=== PATIENT | female | born 1985 | race Caucasian/White ===

== ENCOUNTER 2017-04-21 13:13 | Emergency (ER) | payer OTHER ==
--- NOTE | 2017-04-21 13:35 | PDOC ---
History of Present Illness - General History Source: Patient Exam Limitations: No Limitations - History of Present Illness Initial Comments: CHIEF COMPLAINT: 31 y/o afebrile female with PMH severe CP (non verbal), and left ptosis BIB mom and aide for increased agitation over the past 2 days. HISTORY OF PRESENT ILLNESS: Mom states the patient started biting herself and slamming her left arm over and over again against her bed 2 days ago. Mom admits this normally happens when she is in pain or is sick. The aide from her day program also admits she's been more agitated over the past 2 days. Mom denies fever, vomiting, diarrhea, decrease in urinary output, decrease in PO intake. Vital signs on arrival are BP of 104/65. REVIEW OF SYSTEMS: (Provided by mother and aide; patient is non verbal) GENERAL/CONSTITUTIONAL: No fever RESPIRATORY: No cough. GASTROINTESTINAL: No vomiting, diarrhea or constipation GENITOURINARY: No decrease in urination. SKIN: +bruising to left arm and bites to right arm. NEUROLOGIC: +agitation. No seizures. no LOC. PHYSICAL EXAM: GENERAL: The patient is awake and intermittently hitting her left arm against the bed railing. HEAD: Normal with no signs of trauma. ENT: Left eye stuck shut. Right eye rolled back into head. LUNGS: Clear to auscultation bilaterally. Normal excursion. No respiratory distress or use of accessory muscles. CV: RRR, S1/S2, no MRG. Cap refill < 2 sec. ABDOMEN: Soft, non-distended, non-tender even to deep palpation, no hepatomegaly or splenomegaly, no masses. VAGINAL: External vaginal exam is unremarkable for irritation, rash or discharge. Speculum and manual exam was not performed. EXTREMITIES: Right wrist held in flexure contraction. Multiple bruising of left dorsal forearm. NEUROLOGICAL: Normal speech, normal gait. CN II-XII grossly intact. PSYCH: Normal mood, normal affect. SKIN: 10cm x 4cm area of macerated skin of left upper arm without oozing, discharge or streaking. Multiple scabs over joints of right hand. <Elda Adair - Last Filed: 04/21/17 16:19> <Judy Jack - Last Filed: 04/22/17 15:41> - General Chief Complaint: Seizure Stated Complaint: SEIZURE Time Seen by Provider: 04/21/17 13:34 Past History <Elda Adair - Last Filed: 04/21/17 16:19> <Judy Jack - Last Filed: 04/22/17 15:41> - Past Medical History Allergies/Adverse Reactions: Allergies Allergy/AdvReac Type Severity Reaction Status Date / Time No Known Allergies Allergy Verified 04/21/17 13:51 Home Medications: Ambulatory Orders Baclofen 20 mg PO TID 04/21/17 Lamotrigine 75 mg PO BID 04/21/17 Olanzapine [Zyprexa -] 2.5 mg PO DAILY 04/21/17 Sertraline HCl 50 mg PO DAILY 04/21/17 Sertraline HCl [Zoloft -] 100 mg PO DAILY 04/21/17 *Physical Exam - Vital Signs Last Vital Signs Temp Pulse Resp BP Pulse Ox 97.9 F 73 20 111/68 98 04/21/17 17:25 04/21/17 17:25 04/21/17 17:25 04/21/17 17:25 04/21/17 17:25 <Judy Jack - Last Filed: 04/22/17 15:41> ED Treatment Course - LABORATORY CBC & Chemistry Diagram: 04/21/17 14:20 04/21/17 14:20 <Elda Adair - Last Filed: 04/21/17 16:19> - LABORATORY CBC & Chemistry Diagram: 04/21/17 14:20 04/21/17 14:20 - ADDITIONAL ORDERS Additional order review: 04/21/17 13:44 Urine Culture - Final Urine - Urine Clean Catch NO GROWTH OBTAINED 04/21/17 14:20 RBC 4.07 MCV 84.3 MCHC 33.2 RDW 14.4 MPV 9.1 Neutrophils % 50.3 Lymphocytes % 36.2 Monocytes % 9.4 Eosinophils % 3.6 Basophils % 0.5 - Medications Given in the ED: ED Medications Discontinued Medications Generic Name Dose Route Start Last Admin Trade Name Freq PRN Reason Stop Dose Admin Sodium Chloride 1,000 mls @ 1,000 mls/hr 04/21/17 14:21 04/21/17 15:57 Normal Saline - IV 04/21/17 15:20 Not Given ASDIR STA <Judy Jack - Last Filed: 04/22/17 15:41> Medical Decision Making - Medical Decision Making A/P: 31 y/o female with CP BIB mom for increased agitation over the past 2 days. Plan is as follows: 1. UA/culture 2. labs 3. IV fluids Labs and urine unremarkable. Will cover arm abrasion with non adherent dressing and RAD bandage in an attempt to prevent further biting of the area. Suggested mom f/u with her PCP if symptoms persist and return to the ER with any worsening or concerning symptoms. The patient's mom verbalizes understanding of all instructions, has no further questions and is awaiting discharge. <Elda Adair - Last Filed: 04/21/17 16:19> *DC/Admit/Observation/Transfer <Elda Adair - Last Filed: 04/21/17 16:19> - Attestations Physician Attestion: I reviewed the case with the mid-level practitioner and agree with the mid- level practitioner's assessment, diagnosis and disposition. <Judy Jack - Last Filed: 04/22/17 15:41> Diagnosis at time of Disposition: Agitation - Discharge Dispostion Disposition: HOME Condition at time of disposition: Good - Patient Instructions Additional Instructions: Discharge Instructions: -All blood work and urine tests were normal -Please follow up with the patient's doctor tomorrow -Return to the ER with any worsening or concerning symptoms - Post Discharge Activity Work/School Note: Back to School
[2017-04-21 13:51] VITALS: BMI 22.2
[2017-04-21] MEDS ORDERED: SODIUM CHLORIDE 1,000 ML IV STA (14:21)
[2017-04-21 14:37] LABS: BASOPHIL 0.5 % (0-2.0); EOSINOPHIL 3.6 % (0-4.5); MCHC 33.2 g/dl (32.0-36.0); MEAN CELL VOLUME 84.3 fl (80-96); MEAN PLT VOLUME 9.1 fl (7.5-11.1); NEUTROPHILS 50.3 % (42.8-82.8); PLATELET COUNT 158 K/MM3 (134-434); RDW 14.4 % (11.6-15.6); WHITE BLOOD COUNT 4.8 K/mm3 (4.0-10.0)
[2017-04-21 14:50] LABS: URINE APPEARANCE CLEAR; URINE BILIRUBIN NEGATIVE (NEGATIVE); URINE COLOR LTYELLOW; URINE GLUCOSE (UA) NEGATIVE (NEGATIVE); URINE KETONE NEGATIVE (NEGATIVE); URINE LEUK ESTERASE NEGATIVE (NEGATIVE); URINE NITRITE NEGATIVE (NEGATIVE); URINE PROTEIN NEGATIVE (NEGATIVE); URINE UROBILINOGEN NEGATIVE E.U./dl (0.2-1.0)
[2017-04-21 14:59] LABS: URINE BLOOD 1+ (NEGATIVE)
[2017-04-21 15:01] LABS: URINE MUCUS RARE; URINE RBC 10 /hpf (0-3); URINE WBC 1 /hpf (3-5)
[2017-04-21 15:01] LABS: ALBUMIN 3.8 g/dl (3.4-5.0); ALK PHOS 79 U/L (45-117); ANION GAP 11 (8-16); BILIRUBIN,TOTAL 0.2 mg/dL (0.2-1.0); CALCIUM 8.6 mg/dL (8.5-10.1); CO2 24 mmol/L (21-32); COCKROFT - GAULT 129.5825; CREATININE 0.5 mg/dL (0.55-1.02); GLUCOSE,RANDOM 87 mg/dL (74-106); SGOT/AST 18 U/L (15-37); SGPT/ALT 16 U/L (12-78)
[2017-04-21 18:06] VITALS: BP 111/68; PULSE 73; TEMP 97.9
== END 2017-04-21 17:30 | disposition home or self-care (01) ==
LOC: JER 13:13
DX: R45.1 Restlessness and agitation (principal); G80.9 Cerebral palsy, unspecified; H02.402 Unspecified ptosis of left eyelid
CPT/HCPCS: 36415; 80053; 81003; 81015; 83605; 85025; 87086; 99283-25

== ENCOUNTER 2017-07-20 10:15 | Emergency (ER) | payer OTHER ==
[2017-07-20 10:26] VITALS: TEMP 98.4; BMI 24.2
--- NOTE | 2017-07-20 11:26 | PDOC ---
History of Present Illness - History of Present Illness Initial Comments: 07/20/17 11:22 " The patient is a year 31 old female with a significant past medical history of severe cerebral palsy (non-verbal), ORDER ENTRY TECHNICIAN Shunt (05/17/17), who presents to the emergency department via ems from [facility] with redness and swelling to her right cheek s/p unwitnessed fall. The patient presents with an aide from [facility] who called the facility at bedside and informed us that the patient fell out of bed anywhere between 12am and 8am today. The patients mother is also at bedside who states her daughter is acting at her baseline. The patients mother states she has tried getting [place] to place rails on the bed, but denies knowledge of the facility doing so. The patients mother states her daughter is new to the [facility] as of 3 weeks ago and states she was seeing Dr. Noe prior to the initiation of care at the [facility] facility. Allergies: NKDAPast surgical history: ORDER ENTRY TECHNICIAN Shunt placement (05/17/17) " 07/20/17 11:25 <Kris Forrest - Last Filed: 07/20/17 12:34> <Freda Blackburn - Last Filed: 07/20/17 12:48> - General Chief Complaint: Injury Stated Complaint: SENT FOR EVALUATION Time Seen by Provider: 07/20/17 10:45 Past History - Past Medical History Seizures: Yes (hydrocephalus, ivp shunt) - Psycho/Social/Smoking Cessation Hx Anxiety: No Suicidal Ideation: No Smoking History: Never smoked Have you smoked in the past 12 months: No Information on smoking cessation initiated: No Hx Alcohol Use: No Drug/Substance Use Hx: No Substance Use Type: None <Kris Forrest - Last Filed: 07/20/17 12:34> <Freda Blackburn - Last Filed: 07/20/17 12:48> - Past Medical History Allergies/Adverse Reactions: Allergies Allergy/AdvReac Type Severity Reaction Status Date / Time No Known Allergies Allergy Verified 07/20/17 10:27 Home Medications: Ambulatory Orders Baclofen 20 mg PO TID 04/21/17 Lamotrigine 75 mg PO BID 04/21/17 Olanzapine [Zyprexa -] 2.5 mg PO DAILY 04/21/17 Sertraline HCl 50 mg PO HS 04/21/17 Sertraline HCl [Zoloft -] 100 mg PO DAILY 04/21/17 Ethinyl Estradiol/Drospirenone [Loryna 3 mg-0.02 mg Tablet] 1 each PO DAILY Review of Systems - Review of Systems Able to Perform ROS?: No (pt nonverbal) <Kris Forrest - Last Filed: 07/20/17 12:34> *Physical Exam - Vital Signs Last Vital Signs Temp Pulse Resp BP Pulse Ox 98.4 F 84 17 164/70 99 07/20/17 10:25 07/20/17 10:25 07/20/17 10:25 07/20/17 10:25 07/20/17 10:25 - Physical Exam Comments: 07/20/17 11:23 """GENERAL: (+) awake, nonverbal at baseline. Alert. In no acute distress HEAD: (+) mild erythema and swelling localized superficially over the right zygomatic region. no other signs of head trauma EYES: PERRLA, EOMI, sclera anicteric, conjunctiva clear ENT: Auricles normal inspection, hearing grossly normal, nares patent, oropharynx clear without exudates. Moist mucosa NECK: nontender, no stepoffs, Normal ROM, supple, no lymphadenopathy, JVD, or masses LUNGS: Breath sounds equal, clear to auscultation bilaterally. No wheezes, and no crackles HEART: Regular rate and rhythm, normal S1 and S2, no murmurs, rubs or gallops ABDOMEN: Soft, nontender, normoactive bowel sounds. No guarding, no rebound. No masses EXTREMITIES: Normal range of motion, no edema. No clubbing or cyanosis. No cords, erythema, or tenderness NEUROLOGICAL: Cranial nerves II through XII grossly intact.moves all extremities SKIN: Warm, Dry, normal turgor, no rashes or lesions noted. """ <Kris Forrest - Last Filed: 07/20/17 12:34> - Vital Signs Last Vital Signs Temp Pulse Resp BP Pulse Ox 98.4 F 84 17 164/70 99 07/20/17 10:25 07/20/17 10:25 07/20/17 10:25 07/20/17 10:25 07/20/17 10:25 <Freda Blackburn - Last Filed: 07/20/17 12:48> ED Treatment Course - RADIOLOGY Radiology Studies Ordered: Category Date Time Status CERVICAL SPINE CT W/O CONTR [CT] Stat CT Scan 07/20/17 10:[address] W/O CONTRAST [CT] Stat CT Scan 07/20/17 10:[address] WITHOUT CONTRAST [CT] Stat CT Scan 07/20/17 10:58 Ordered <Kris Forrest - Last Filed: 07/20/17 12:34> - RADIOLOGY Radiograph Interpretation: 07/20/17 12:46 [id number] EXAM#: TYPE/EXAM: RESULT: [id number] CT/CERVICAL SPINE CT W/O CONTR CT/FACIAL BONES CT W/O CONTRAST CT/HEAD CT WITHOUT CONTRAST Status post fall. Verbal clinical history of cerebral palsy. CT scan of the brain without intravenous contrast. No prior study for comparison. A right anterior ventricular shunt is present without evidence of hydrocephalus. There is mild cortical atrophy. There is lucency in the right temporal lobe consistent with encephalomalacia that may be communicating with the temporal horn suggestive of exvacuodilatation versus are present in cephalic cysts. Deformity of the mesencephalon. On the sagittal reformatted images, there is suggestion of significant thinning of the corpus callosum. Note is made of a fallen right eye globe lens Mild deviation of the nasal septum to the right. Mild mucosal thickening in the ethmoid air cells. Minimal right mastoid effusion. There is a bebo hole in the right high convexity. The rest of the calvarium is intact IMPRESSION: See discussion above. No acute intracranial pathology is identified. CT scan of the facial bones without intravenous contrast. Motion artifacts are limiting multiple images Coronal and sagittal reconstruction images were obtained. No gross fracture is identified. Both orbits are intact . There is focal hyperdensity in the right eye globe, posteriorly compatible with a fallen dense. Left lens is not visualized. No retrobulbar abnormal attenuation seen. Mild deviation of the nasal septum to the right. There is mild mucosal thickening in the ethmoid air cells, mainly on the left. Mucosal thickening is obstructing the left maxillary ostium and ethmoid infundibulum and markedly narrowing the right. Bilateral upper neck and submandibular subcentimeter lymph nodes are present which are nonspecific Visualized intracranial contents appear unremarkable. IMPRESSION: No gross fracture is identified. Mild deviation of the nasal septum to the right. Mild mucosal thickening in the ethmoid air cells as well as in the maxillary ostium, left more the right. Left eye globe lens is not visualized. There is a fallen lens in the right eye globe, seen posteriorly CT scan of the cervical spine without intravenous contrast Coronal and sagittal reconstruction images were obtained. There is straightening of the cervical spine. No gross fracture, subluxation or prevertebral soft tissue swelling is seen. No jumped facets are identified. Prominent anterior spondylosis from C4 through C7 level Visualized portion of the airway appears unremarkable. No gross enlarged lymph nodes are identified. Lung windows at the thoracic inlet appear unremarkable. IMPRESSION: The alignment is satisfactory. No gross fracture or subluxation is seen. Prominent anterior spondylosis from C4 through C7 level Reported By: Paulo Rogers MD 07/20/17 1231 <Freda Blackburn - Last Filed: 07/20/17 12:48> Medical Decision Making - Medical Decision Making 07/20/17 11:24 31 F with CP and ORDER ENTRY TECHNICIAN shunt presents with unwitnessed fall out of bed, now with erythema to her R cheek. Pt is at neurologic baseline per mother, behaving normally. - CT head, max/face, c-spine 07/20/17 12:34 CTs without acute fx or hemorrhage. Discussed results with patient's mother. Confirmed that pt is at her baseline behavior. Mother and aide feel comfortable taking patient back to facility at this time. Pt is clinically stable for dc. <Kris Forrest - Last Filed: 07/20/17 12:34> *DC/Admit/Observation/Transfer - Attestations Physician Attestion: 07/20/17 12:37 I, Dr. Kris Forrest MD, attest that this document has been prepared under my direction and personally reviewed by me in its entirety. I further attest, that it accurately reflects all work, treatment, procedures and medical decision -making performed by me. <Kris Forrest - Last Filed: 07/20/17 12:34> - Attestations Scribe Attestion: 07/20/17 12:48 Documentation prepared by Freda Blackburn, acting as medical technologist prn for Kris Forrest MD, <Freda Blackburn - Last Filed: 07/20/17 12:48> Diagnosis at time of Disposition: Fall - Discharge Dispostion Disposition: NURSING HOME FACILITY - Patient Instructions Printed Discharge Instructions: How to Prevent Falls Additional Instructions: Please follow up with your primary doctor in 1-2 weeks. If Aura begins to exhibit any confusion, agitation, lethargy, vomiting, or any other concerning symptoms, bring her back to the ER immediately.
[2017-07-20 12:53] VITALS: BP 126/77; PULSE 78
== END 2017-07-20 12:53 ==
LOC: JER 10:15
DX: Z04.3 Encounter for examination and observation following other accident (principal); W18.39XA Other fall on same level, initial encounter; Y93.89 Activity, other specified; Y92.129 Unspecified place in nursing home as the place of occurrence of the external cause; G80.9 Cerebral palsy, unspecified; Z97.8 Presence of other specified devices; G91.9 Hydrocephalus, unspecified
CPT/HCPCS: 70450-TC; 70486-TC; 72125-TC; 99281-25

== ENCOUNTER 2017-08-31 18:24 | Emergency (ER) | payer OTHER ==
[2017-08-31 18:39] VITALS: BP 118/87; PULSE 80; TEMP 97.6; BMI 17.7
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
[2017-08-31] MEDS ORDERED: HALOPERIDOL LACTATE 5 MG/ML IM ONE (19:42)
[2017-08-31] MEDS ORDERED: HALOPERIDOL LACTATE 5 MG/ML ONE (20:01)
[2017-08-31] MEDS ORDERED: LORazepam 2 MG/ML SDV VIAL ONE (21:02)
[2017-08-31] MEDS ORDERED: PHENobarbital 20 MG/5 ML UNIT-DOSE CUP PO ONE (21:13)
== END 2017-08-31 23:37 | disposition home or self-care (01) ==
LOC: JER 18:24
PROC: 3E023GC Introduction of Other Therapeutic Substance into Muscle, Percutaneous Approach (ICD-10-PCS; principal; 2017-08-31)
DX: S02.2XXA Fracture of nasal bones, initial encounter for closed fracture (principal); V58.1XXA Passenger in pick-up truck or van injured in noncollision transport accident in nontraffic accident, initial encounter; Y93.89 Activity, other specified; Y92.410 Unspecified street and highway as the place of occurrence of the external cause
CPT/HCPCS: 70450-TC; 70486-TC; 84703; 99282-25

== ENCOUNTER 2018-01-28 14:06 | Emergency (ER) | payer OTHER ==
[2018-01-28 14:14] VITALS: BMI 16.9
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
--- NOTE | 2018-01-28 15:40 | PDOC ---
Attending Attestation - HPI HPI: 01/28/18 15:47 Patient is a 32 F, with PMHx of severe cerebral palsy (non-verbal) and [employer] Shunt (05/17/17), who presents today s/p injury. According to patients aide, patient was found on the floor on the mat by her bedside in a pool of her vomit after an unwitnessed fall. Patient was also was found to have a bruise on her upper lip but it is unclear whether this is from falling or self-inflicted. Patients mother states that the patient is acting and moving at baseline. - Physicial Exam PE: 01/28/18 15:47 Vitals: Triage Vital signs reviewed General Appearance: no acute distress, well nourished well developed, contracted on the right side. Head: Atraumatic, normocephalic Neck: Supple;No Nuchal rigidity Chest Wall: Nontender Cardiac: Regular rate and rhythm, no murmurs, no rubs, no gallops, Lungs: Clear to auscultation bilateral, good air movement bilaterally, Abdomen: Soft, nondistended, normal bowel sounds, nontender to palpation Extremities: Contracted on the right side. Good ROM on the left. No cyanosis, clubbing, or edema Skin: Warm and dry, no rashes or lesions, no petechiae <Dottie Jimenez - Last Filed: 01/28/18 16:48> - Resident Resident Name: Jignesh Rangel - ED Attending Attestation I have performed the following: I have examined & evaluated the patient, The case was reviewed & discussed with the resident, I agree w/resident's findings & plan, Exceptions are as noted - HPI HPI: 32 years old past medical history significant for severe cerebral palsy nonverbal [employer] shunt presents to the ED with a fall off her bed onto a mat. She has a small abrasion to her lip she has at her baseline mental status per her mother Given unwitnessed fall we will obtain CT head and facial bones neck and reassess Dr. Monroy to follow up imaging and reevaluate patient. - Medical Decision Making She with fall from low bed. Patient at baseline mental status per mother. Normal neurologic examination. Admitting CT head neck face Dr. Monroy to follow-up imaging and reevaluate patient. <Juvencio Knigsley - Last Filed: 01/30/18 10:34>
[2018-01-28] MEDS ORDERED: HALOPERIDOL LACTATE 5 MG/ML IM ONE ×2 (16:10→18:12)
[2018-01-28] MEDS ORDERED: LORazepam 2 MG/ML SDV VIAL ONE (16:26)
[2018-01-28] MEDS ORDERED: HALOPERIDOL LACTATE 5 MG/ML ONE ×2 (16:27→18:13)
[2018-01-28 19:39] VITALS: TEMP 98.1
[2018-01-28 22:59] VITALS: BP 105/70; PULSE 72
== END 2018-01-28 23:02 | disposition home or self-care (01) ==
LOC: JER 14:06
PROC: 3E023NZ Introduction of Analgesics, Hypnotics, Sedatives into Muscle, Percutaneous Approach (ICD-10-PCS; principal; 2018-01-28)
PROC: 3E023NZ Introduction of Analgesics, Hypnotics, Sedatives into Muscle, Percutaneous Approach (ICD-10-PCS; 2018-01-28)
PROC: 3E033GC Introduction of Other Therapeutic Substance into Peripheral Vein, Percutaneous Approach (ICD-10-PCS; 2018-01-28)
PROC: 3E033GC Introduction of Other Therapeutic Substance into Peripheral Vein, Percutaneous Approach (ICD-10-PCS; 2018-01-28)
PROC: 3E033GC Introduction of Other Therapeutic Substance into Peripheral Vein, Percutaneous Approach (ICD-10-PCS; 2018-01-28)
DX: S00.531A Contusion of lip, initial encounter (principal); W06.XXXA Fall from bed, initial encounter; Y93.89 Activity, other specified; Y92.112 Bedroom in children's home and orphanage as the place of occurrence of the external cause; Y99.8 Other external cause status; G80.2 Spastic hemiplegic cerebral palsy; Z95.828 Presence of other vascular implants and grafts; R45.1 Restlessness and agitation
CPT/HCPCS: 70450-TC; 70486-TC; 72125-TC; 96372; 99282-25

== ENCOUNTER 2021-05-13 11:21 | Emergency (ER) | payer OTHER ==
[2021-05-13 11:27] VITALS: BMI 17.7
[2021-05-13 12:35] VITALS: TEMP 99
[2021-05-13 13:24] LABS: CALCIUM 8.9 mg/dL (8.5-10.1)
[2021-05-13 13:26] LABS: ALBUMIN 3.4 g/dl (3.4-5.0); BLOOD UREA NITROGEN 8.7 mg/dL (7-18)
[2021-05-13 13:27] LABS: BASO % 0.3 % (0-2.0); EOS % 2.1 % (0-4.5); HEMOGLOBIN 13.2 GM/dL (10.7-15.3); LYMPH % 24.4 % (8-40); MCH 30.9 pg (25.7-33.7); MCHC 34.8 g/dl (32.0-36.0); MEAN CELL VOLUME 88.6 fl (80-96); MEAN PLT VOLUME 8.5 fl (7.5-11.1); MONO % 7.2 % (3.8-10.2); PLATELET COUNT 214 10^3/uL (134-434); RBC 4.29 M/mm3 (3.60-5.2); RDW 12.3 % (11.6-15.6); WHITE BLOOD COUNT 5.5 K/mm3 (4.0-10.0)
[2021-05-13 13:29] LABS: BILIRUBIN,TOTAL 0.4 mg/dL (0.2-1); CREATININE 0.5 mg/dL (0.55-1.3); TOT PROT 7.2 g/dl (6.4-8.2)
[2021-05-13 14:14] LABS: ERYTHROCYTE SEDIMENTATION RATE 19 mm/hr (0-20)
[2021-05-13 14:17] VITALS: BP 149/75; PULSE 90
== END 2021-05-13 14:20 | disposition home or self-care (01) ==
LOC: JER 11:21
DX: L03.90 Cellulitis, unspecified (principal)
CPT/HCPCS: 36415; 73560-TC-LT-FY; 80053; 85025; 85651; 86140; 99284-25